=== PATIENT | male | born 1970 | race Caucasian/White ===

== ENCOUNTER → 2025-01-08 | Outpatient (CLI) | payer MEDICAID ==
[~2025-01-08] MED LIST: ACET-1025 PO; METF-1203 PO; MSC30T PO; TAMS-55 PO
--- NOTE | 2025-01-08 10:36 | ELECTROCARDIOGRAPH REPORT ---
[facility] Test Date: 2025-01-08 Test Time: 10:34:57 Pat Name: LATONIA KING Department: [facility]-PRE-OP Patient ID: [facility]-[id number] Room: Gender: M [employer] An[employer]: MARIELLA : 1970 Requested By: LATONIA KELLEY Order Number: [id number] Reading MD: Dr. ALBERTO Reyes Measurements Intervals [place] Rate: 85 P: 49 MT: 145 QRS: -15 QRSD: 94 T: 64 QT: 352 QTc: 419 Interpretive Statements Sinus rhythm Probable left atrial enlargement Borderline left axis deviation RSR' in V1 or V2, right VCD or RVH Electronically Signed On 01-08-2025 17:33:[address] ALBERTO Reyes Please click the below link to view image of tracing.
[2025-01-08 10:50] LABS: PRE OP WHITE BLOOD COUNT 13.7 10'3 (4.8-10.8)
[2025-01-08 10:51] LABS: MEAN PLATELET VOLUME 6.6 FL (7.4-10.4); PRE OP HEMATOCRIT 26.3 % (42.0-52.0); PRE OP PLATELET COUNT 690 X10'3 (140-440); RED CELL DISTRIBUTION WIDTH 19.0 % (11.5-14.5)
[2025-01-08 10:53] LABS: PRE OP HEMOGLOBIN 8.2 g/dL (14.0-17.9)
[2025-01-08 11:16] LABS: CREATININE 1.11 MG/DL (0.60-1.10); PRE OP ALT 10 U/L (30-65); PRE OP ANION GAP 11 (8-16); PRE OP BILIRUB, TOTAL 0.2 MG/DL (0.0-1.0); PRE OP GLUCOSE 113 MG/DL (70-104); PRE OP POTASSIUM 4.7 MMOL/L (3.4-5.1); PRE OP SODIUM 134 MMOL/L (135-145); TOTAL CARBON DIOXIDE 25.3 MMOL/L (24-32); eGFR 69 ML/MIN
[2025-01-08 11:21] LABS: PLATELET ESTIMATE INCREASED
[2025-01-08 11:24] LABS: PRE OP AST 116 U/L (10-37)
== END | disposition home or self-care (01) ==
LOC: LAB 09:48 → EDSTATUS 01-15 11:00
PROVIDERS: ATTEND Surgery
DX: Z01.812 Encounter for preprocedural laboratory examination (principal); K40.90 Unilateral inguinal hernia, without obstruction or gangrene, not specified as recurrent
CPT/HCPCS: 80053; 85008; 85025; 93005